=== PATIENT | male | born 1980 | race Caucasian/White ===

== ENCOUNTER → 2021-12-30 | Outpatient (CLI) | payer BC ==
--- NOTE | 2021-12-30 11:22 | US ---
EXAMINATION TYPE: US groin RT DATE OF EXAM: 12/30/2021 COMPARISON: NONE CLINICAL HISTORY: K40.90 UNI LATERAL INGUINAL HERNIA. Rule out hernia. Inguinal hernia. Scanned patient's right groin, at area of concern. Hypoechoic area with hyperechoic center seen within the right groin: 2.4 x 1.8 x 1.4 cm. Abnormal right groin lymph node suspected on images saved increased in size with cortical thickening. No suspicious hernia seen on images saved including with Valsalva maneuver. No solid or cystic mas s or focal fluid collection on images saved. IMPRESSION: As above. Abnormal lymph node could reflect infectious or inflammatory etiology but kimberly plasm such as lymphoma cannot be excluded. Consider further workup with CT and/or PET/CT based on cli nical correlation.
--- NOTE | 2021-12-30 11:36 | US ---
EXAMINATION TYPE: US scrotum with doppler. Grayscale and color Doppler Duplex imaging performed of thomas bean scrotum. DATE OF EXAM: 12/30/2021 COMPARISON: NONE CLINICAL HISTORY: N50.819 TESTICULAR PAIN. Pain EXAM MEASUREMENTS: TESTICLES: Right Testicle: 4.7 x 3.3 x 2.9 cm Left Testicle: 4.4 x 2.9 x 3.4 cm EPIDIDYMIS HEAD: Right Epididymis: 0.6 x 0.9 x 1.4 cm Left Epididymis: 0.7 x 1.3 x 1.0 cm Doppler performed to assess for testicular vascularity; bilateral color flow and waveforms are seen. Presence of hydroceles: Yes, on right: 2.2 x 2.0 x 1.0 on left: 2.5 x 2.2 x 0.6 cm. Presence of varicoceles: Vessels seen lateral to right testicle measure up to 2.4 mm. Vessels appear prominent lateral to the left testicle and measure up to 2.9 mm. Multiple tiny bilateral scrotal fluid collection or hydroceles. Testicles symmetric and normal in siz e without intratesticular mass identified bilaterally. Epididymis within normal limits. Comparison vi ew show symmetric blood flow to both testicles. Possible left greater than right prominent vessels or varicoceles incidentally noted. IMPRESSION: Symmetric blood flow to both testicles noted.
== END | disposition home or self-care (01) ==
LOC: RADUSWWP 10:17
PROVIDERS: ATTEND Family Medicine
DX: K40.90 Unilateral inguinal hernia, without obstruction or gangrene, not specified as recurrent (principal); N50.819 Testicular pain, unspecified
CPT/HCPCS: 76870; 93975

== ENCOUNTER → 2022-01-18 | Outpatient (CLI) | payer BC ==
--- NOTE | 2022-01-18 14:03 | CT ---
EXAMINATION TYPE: CT pelvis wo/w con DATE OF EXAM: 01/18/2022 INDICATION: Right lower groin pain, localized enlarged lymph node CT DLP: 4285.4 mGy.cm Automated Exposure Control for Dose Reduction was Utilized. TECHNIQUE AND CONTRAST: CT scan of the pelvis is performed without and with IV Contrast, patient injected with 100 mL of Isov ue 300. COMPARISON: Ultrasound dated 12/30/2021 FINDINGS: Large right and smaller left bilateral fat-containing inguinal hernias extending to the scrotum. Enla rged bilateral inguinal lymph nodes measuring up to 14 mm on the right side and 13 mm on the left sarahi e, associated with scattered subcentimeter bilateral external iliac, retroperitoneal, mesenteric and ileocolic lymph nodes, nonspecific. Lymphoma or lymphoproliferative disease cannot be excluded, for c linical correlation and further workup. Thickened with irregular outline of the right lateral aspect of the urinary bladder wall, being tethe red towards the large right inguinal hernia. Recommend correlation with urinalysis results. Unremarka ble prostate and seminal vesicles. Fecal loading of the rectum and sigmoid colon. Scattered uncomplicated colonic diverticulosis. Unremarkable visualized small bowel. Unremarkable vis ualized portion of the kidneys. No hydroureter or hydronephrosis. Small fat-containing umbilical erna ia. Degenerative changes at L5-S1 level with retrolisthesis of L3 over L4 and L4 over L5. IMPRESSION: Enlarged bilateral inguinal lymph nodes with prominent bilateral external iliac, mesenteric, ileocoli c and retroperitoneal lymph nodes as described above, nonspecific. Lymphoma or lymphoproliferative di sease cannot be excluded, for clinical correlation and further workup. Other findings as described above.
== END | disposition home or self-care (01) ==
LOC: RADCTMAIN 10:37
PROVIDERS: ATTEND Family Medicine
DX: R59.0 Localized enlarged lymph nodes (principal)
CPT/HCPCS: 72194; Q9967

== ENCOUNTER → 2022-03-16 | Outpatient (CLI) | payer BC | END | disposition home or self-care (01) | LOC: LABWHC1 08:31 | PROVIDERS: ATTEND Surgery | DX: Z53.9 Procedure and treatment not carried out, unspecified reason (principal) ==

== ENCOUNTER → 2022-03-16 | Outpatient (CLI) | payer BC ==
--- NOTE | 2022-03-16 10:53 | CT ---
EXAMINATION TYPE: CT abdomen pelvis w con DATE OF EXAM: 03/16/2022 COMPARISON: CT dated 01/18/2022 HISTORY: Localized enlarged lymph nodes. CT DLP: 1944 mGycm Automated exposure control for dose reduction was used. TECHNIQUE: Helical acquisition of images was performed from the lung bases through the pelvis. CONTRAST: Performed with Oral Contrast and with IV Contrast, patient injected with 100ml mL of Isovue 300. FINDINGS: LUNG BASES: No significant abnormality is appreciated. LIVER/GB: No significant abnormality is appreciated. PANCREAS: No significant abnormality is seen. SPLEEN: No significant abnormality is seen. ADRENALS: No significant abnormality is seen. KIDNEYS: No significant abnormality is seen. FREE AIR: No free air is visualized. RETROPERITONEAL ADENOPATHY: Millimetric retroperitoneal lymph nodes, stable. REPRODUCTIVE ORGANS: No significant abnormality is seen URINARY BLADDER: Focal thickening of the right lateral aspect of the urinary bladder wall, being tet hered towards the right inguinal hernia however underlying urothelial lesion cannot be excluded. Joao mmend correlation with urinalysis results including cytology. Cystoscopy can be considered. PELVIC ADENOPATHY: Stable prominent bilateral inguinal lymph nodes measuring up to 12 mm on the righ t side and 14 mm on the left side. No progressive pelvic lymphadenopathy. OSSEOUS STRUCTURES: Mild retrolisthesis of L4 over L5 and anterolisthesis of L5 over S1. No aggressi ve bone lesion. BOWEL: No significant abnormality is seen. OTHER: Unremarkable abdominal aorta. Scattered millimetric mesenteric and ileocolic lymph nodes, nons pecific and stable. No sizable ascites. Sizable bilateral fat-containing inguinoscrotal hernias large r on the right side. Small fat-containing umbilical hernia. IMPRESSION: No appreciable interval changes regarding the previously seen prominent bilateral inguinal lymph node s and other scattered smaller abdominal and retroperitoneal lymph nodes without interval progression, nonspecific. No hepatomegaly or splenomegaly. Focal thickening of the right lateral wall of the urinary bladder, being tethered towards the right i nguinal hernia however underlying urothelial lesion can't be excluded. Recommend correlation with uri nalysis results including cytology. Further cystoscopy can be considered. Other incidental findings a s described above.
== END | disposition home or self-care (01) ==
LOC: RADCTMAIN 07:54
PROVIDERS: ATTEND Internal Medicine Hematology & Oncology
DX: R59.0 Localized enlarged lymph nodes (principal)
CPT/HCPCS: 74177; Q9967 ×2

== ENCOUNTER 2022-03-23 05:48 | Day surgery (SDC) | payer BC ==
[2022-03-17 07:49] LABS: Basophils # (A) 0.04 X 10*3/uL (0.00-0.10); Basophils % (A) 0.8 %; Eosinophils # (A) 0.27 X 10*3/uL (0.04-0.35); Eosinophils % (A) 5.7 %; HCT 43.5 % (39.6-50.0); HGB 14.2 g/dL (13.0-17.0); Immature Grans, Automated 0.6 %; Lymphocytes % (A) 23.1 %; MCH 29.3 pg (27.0-32.0); MCHC 32.6 g/dL (32.0-37.0); MCV 89.9 fL (80.0-97.0); Mean Platelet Volume 11.6 fL (9.5-12.2); Monocytes # (A) 0.36 X 10*3/uL (0.20-1.00); Monocytes % (A) 7.5 %; NRBC Per 100 WBC 0 /100 WBCS (0.0-0.0); Neutrophils # (A) 2.97 X 10*3/uL (1.80-7.70); Neutrophils % (A) 62.3 %; Platelet Count 192 X 10*3/uL (140-440); RBC 4.84 X 10*6/uL (4.40-5.60); WBC 4.77 X 10*3/uL (4.50-10.00)
[2022-03-19 13:05] VITALS: BMI 34.7
[~2022-03-23 05:48] MED LIST: ACETAMINOPHEN TAB 500 MG TAB PO PRN; HEPARIN SODIUM,PORCINE/PF 5,000 UNIT/0.5 ML SYRINGE SQ PRN; ceFAZolin 3 GM in SODIUM CHLORIDE 0.9% 100 ML IVPB PRN
[2022-03-23] MEDS ORDERED: LIDOCAINE 1% (10MG/ML) FOR IV START INTRADERMA PRN (05:50)
[2022-03-23] MEDS ORDERED: ONDANSETRON 4 MG/2 ML VIAL IVP ONE (05:50)
[2022-03-23] MEDS ORDERED: LACTATED RINGERS 1,000 ML IV SCH (05:50)
[2022-03-23] MEDS ORDERED: DEXAMETHASONE SOD PHOSPHATE 4 MG/ML 1 ML VIAL IV ONE (05:50)
[2022-03-23] MEDS ORDERED: METOCLOPRAMIDE 5 MG/ML 2 ML VIAL IVP PRN (07:00)
[2022-03-23] MEDS ORDERED: HYDROmorphone 0.5 MG/0.5 ML SYRINGE IVP PRN (07:00)
[2022-03-23] MEDS ORDERED: BUPIVACAIN-EPI 0.25%-1:200,000 30 ML VIAL SQ ONE ×2 (07:21→08:24)
[2022-03-23] MEDS ORDERED: LIDOCAINE 2% INJ 20 MG/ML (2 ML VIAL) ONE (07:59)
[2022-03-23] MEDS ORDERED: fentaNYL (PF) 50 MCG/ML 2 ML AMP ONE (07:59)
[2022-03-23] MEDS ORDERED: SUCCINYLCHOLINE CHLORIDE 100 MG/5 ML SYR IV ONE (07:59)
[2022-03-23] MEDS ORDERED: GLYCOPYRROLATE 0.2 MG/ML 2 ML VIAL ONE (07:59)
[2022-03-23] MEDS ORDERED: KETOROLAC 15 MG/ML 1 ML VIAL ONE (07:59)
[2022-03-23] MEDS ORDERED: ROCURONIUM 10 MG/ML (5 ML VIAL) IV ONE (07:59)
[2022-03-23] MEDS ORDERED: PHENYLEPHRINE-0.9% NACL SYG 1,000 MCG/10 ML SYRINGE ONE (07:59)
[2022-03-23] MEDS ORDERED: NEOSTIGMINE 1 MG/ML 10 ML VIAL ONE (07:59)
[2022-03-23] MEDS ORDERED: MIDAZOLAM 2 MG/2 ML VIAL ONE (07:59)
[2022-03-23] MEDS ORDERED: PROPOFOL 10 MG/ML 20 ML VIAL IV ONE (07:59)
[2022-03-23] MEDS ORDERED: KETAMINE 10 MG/ML 20 ML VIAL ONE (07:59)
[2022-03-23 09:29] VITALS: TEMP 97
--- NOTE | 2022-03-23 09:34 | P.GSHP ---
History of Present Illness H&P Date: 03/23/22 Chief Complaint: Bilateral inguinal hernia This a 42-year-old male who complaints of pain in bilateral groins. Patient's workup found have evidence of bilateral inguinal hernias. He presents today for laparoscopic robotic-assisted repair. Past Medical History Additional Past Medical History / Comment(s): INGUINAL HERNIA History of Any Multi-Drug Resistant Organisms: None Reported Past Surgical History: Adenoidectomy, Tonsillectomy Past Anesthesia/Blood Transfusion Reactions: No Reported Reaction Smoking Status: Former smoker - Past Family History Mother Family Medical History: No Reported History Medications and Allergies Home Medications Medication Instructions Recorded Confirmed Type Cetirizine HCl [Zyrtec] 10 mg PO DAILY 03/19/22 03/19/22 History Fluticasone Nasal [place] [Flonase 1 spray NASAL DAILY 03/23/22 03/23/22 History Nasal [place]] Allergies Allergy/AdvReac Type Severity Reaction Status Date / Time cephalexin [From Keflex] Allergy Rash/Hives Verified 03/19/22 12:59 Surgical - Exam Vital Signs Temp Pulse Resp BP Pulse Ox 97.3 F L 71 20 136/91 94 L 03/23/22 06:18 03/23/22 06:18 03/23/22 06:18 03/23/22 06:18 03/23/22 06:18 - General well developed, well nourished, no distress - Eyes PERRL - ENT normal pinna - Neck no masses - Respiratory normal expansion - Cardiovascular Rhythm: regular - Abdomen Abdomen: soft, non tender Hernia: inguinal (Bilateral inguinal is. Right greater than left) Results - Labs 03/16/22 10:12 Assessment and Plan Assessment: Bilateral inguinal hernias. We'll perform laparoscopic robotic system repair.
[2022-03-23] MEDS ORDERED: LACTATED RINGERS 1,000 ML IV ONE (09:35)
--- NOTE | 2022-03-23 09:38 | P.OP ---
Date of Procedure: 03/23/22 Preoperative Diagnosis: Bilateral inguinal hernia Postoperative Diagnosis: Bilateral hernia Procedure(s) Performed: Transversus abdominis plane block Repair of bilateral internal hernia Excision of bilateral cord lipoma Anesthesia: PAULO Surgeon: Rock Crane Estimated Blood Loss (ml): 5 Pathology: other (Cord lipoma) Condition: stable Disposition: PACU Description of Procedure: The patient's placed on the operating table in the supine position. The patient received general anesthesia. The patient's abdomen was prepped and draped in usual sterile fashion. The skin was anesthetized 1% local Xylocaine at the incision sites. Using an 11 blade a skin incision was made at the umbilicus. The fascia was grasped with a Tawnya and then the peritoneal cavity was entered with the Veress needle. Position of the Veress needle was confirmed with a positive drop test. After adequate insufflation a 5 mm trocar was placed into the peritoneal cavity. The Laparoscope was placed the peritoneal cavity. And a robotic 8 mm trocar was placed in the right lateral position and then another 8 mm robotic trochars placed in the left lateral position. The original 5 mm trocar was exchanged for a 12 mm trocar. The patient was placed in reverse Trendelenburg and then the pa tient was docked to the robot. Next the peritoneum over top of the right inguinal hernia was incised and then using blunt and sharp dissection and electrocautery the hernia sac was dissected free from the floor of the inguinal canal. The cord lipoma was dissected free to pathology. The hernia sac was completely reduced into the peritoneal cavity. And then using the Pro glass bead maker mesh the hernia was repaired. The peritoneum was then sutured with 20V lock suture. Next the peritoneum over top of the left inguinal hernia was incised and then using blunt and sharp dissection and electrocautery the hernia sac was dissected free from the floor of the inguinal canal. The cord lipoma was dissected free to pathology. The hernia sac was completely reduced into the peritoneal cavity. And then using the Pro glass bead maker mesh the hernia was repaired. The peritoneum was then sutured with 20V lock suture. The patient was then undocked the robot. A four-quadrant tap block was performed using 1% local Xylocaine. The needle was withdrawn from the peritoneal cavity. The umbilical trocar site was closed with 0 Ethibond suture. The skin was closed interrupted 3-0 Monocryl suture. Dermabond dressing was applied. Patient was sent to recovery in stable condition.
[2022-03-23 10:30] VITALS: BP 139/91
[2022-03-23 10:53] VITALS: PULSE 61; RESP 18
== END 2022-03-23 11:15 | disposition home or self-care (01) ==
LOC: OR 05:48
PROVIDERS: ATTEND Surgery
DX: K40.20 Bilateral inguinal hernia, without obstruction or gangrene, not specified as recurrent (principal); D17.6 Benign lipomatous neoplasm of spermatic cord; Z90.89 Acquired absence of other organs; Z87.891 Personal history of nicotine dependence; Z79.899 Other long term (current) drug therapy; Z88.1 Allergy status to other antibiotic agents
CPT/HCPCS: 49650; S2900; 36415; 85025; 86850; 86900; 86901; 88304

== ENCOUNTER 2022-03-28 18:03 | Emergency (ER) | payer BC ==
[2022-03-28 18:39] VITALS: TEMP 98.4
[2022-03-28] MEDS ORDERED: SODIUM CHLORIDE 0.9% 1,000 ML IV STA (18:43)
[2022-03-28] MEDS ORDERED: HYDROmorphone 1 MG/ML 1 ML SYRINGE IVP STA (18:43)
--- NOTE | 2022-03-28 18:45 | ED ---
General Adult HPI - General Chief complaint: Recheck/Abnormal Lab/Rx Stated complaint: Fever/groin pain/post op Time Seen by Provider: 03/28/22 18:42 Source: patient Mode of arrival: ambulatory Limitations: no limitations - History of Present Illness Initial comments: Patient presents to the ED with his for postoperative evaluation. Patient is 5 days status post bilateral inguinal hernia repair performed by Dr. Crane (general surgery). Patient states that he developed scrotal ecchymosis and swelling about 2 days after his surgery, and he states that he's had severe left-sided scrotal and inguinal pain since yesterday. Patient states that he has not reached out to his surgeon about these symptoms. Patient denies trauma or injury, fever or chills, headache, focal neuro deficit, chest pain or pressure, dyspnea, dizziness, abdominal pain, back or flank pain, nausea or vomiting, diarrhea or constipation, bloody or melanotic stool, dysu donnie/hematuria/urinary frequency/urinary symptoms, penile discharge, or any other symptoms or complaints. - Related Data Home Medications Medication Instructions Recorded Confirmed Cetirizine HCl [Zyrtec] 10 mg PO DAILY 03/19/22 03/19/22 Fluticasone Nasal [place] [Flonase 1 spray NASAL DAILY 03/23/22 03/23/22 Nasal [place]] Previous Rx's Medication Instructions Recorded Acetaminophen Tab [Tylenol] 650 mg PO Q6H #30 tab 03/23/22 Docusate [Colace] 100 mg PO BID #20 capsule 03/23/22 Ibuprofen [Motrin] 600 mg PO Q6HR PRN #40 tab 03/23/22 oxyCODONE HCL [OxyIR] 5 mg PO Q6H PRN 3 Days #10 tab 03/23/22 Allergies Allergy/AdvReac Type Severity Reaction Status Date / Time cephalexin [From Keflex] Allergy Rash/Hives Verified 03/19/22 12:59 Review of Systems ROS Statement: Those systems with pertinent positive or pertinent negative responses have been documented in the HPI. ROS Other: All systems not noted in ROS Statement are negative. Past Medical History Past Medical History: No Reported History History of Any Multi-Drug Resistant Organisms: None Reported Additional Past Surgical History / Comment(s): bilateral inguinal hernias done on 03-23-[address] Valdovinos. Past Psychological History: No Psychological Hx Reported Smoking Status: Former smoker, Never smoker Past Alcohol Use History: None Reported, Occasional Past Drug Use History: None Reported General Exam Limitations: no limitations General appearance: alert, in no apparent distress Head exam: Present: atraumatic, normocephalic Eye exam: Present: normal appearance, EOMI ENT exam: Present: mucous membranes moist Neck exam: Present: other (Trachea is in midline) Respiratory exam: Present: normal lung sounds bilaterally. Absent: respiratory distress, wheezes, rales, rhonchi, stridor Cardiovascular Exam: Present: regular rate, normal rhythm, normal heart sounds, other (Normal radial pulses bilaterally) GI/Abdominal exam: Present: soft, hypoactive bowel sounds, other (Patient has no abdominal tenderness on examination). Absent: distended, tenderness, guarding exam: Present: other (Mild left inguinal tenderness; diffuse scrotal swelling and ecchymosis; left-sided scrotal tenderness) Extremities exam: Absent: tenderness, pedal edema, calf tenderness Back exam: Absent: CVA tenderness (R), CVA tenderness (L) Neurological exam: Present: alert, oriented X3. Absent: motor sensory deficit Psychiatric exam: Present: normal affect, normal mood Skin exam: Present: warm, dry, intact Course Vital Signs 03/28/22 03/28/22 18:35 19:20 Temperature 98.4 F Pulse Rate 105 H 80 Respiratory 20 16 Rate Blood Pressure 138/95 139/82 O2 Sat by Pulse 95 97 Oximetry - Reevaluation(s) Reevaluation #1: 03/28/22 20:21 Case, H&P and test results were discussed with Dr. Crane (general surgery). He states the patient's exam/CT findings are normal postoperative findings. He recommends discharge patient home with pain management, and he states that he will see the patient in his clinic on Tuesday. He has no further recommendations at this time. 03/28/22 21:10 Patient states that his pain has improved with ED treatment, and he denies development of any new symptoms while in the ED. Patient's abdomen remains soft and nontender on examination. Patient and are aware the patient's test results and my discussion with Dr. Crane as above. Patient feels comfortable going home at this time. Patient was counseled about postoperative pain, and he was clearly explained return and follow-up instructions. Patient was instructed to follow up with Dr. Crane in his clinic on Tuesday as recommended by Dr. Crane and he agrees to do so. Medical Decision Making - Medical Decision Making Patient reports that his pain has improved with ED treatment. Patient's abdomen is soft and nontender on examination. Patient is afebrile and without leukocytosis. Patient's labs are fairly unremarkable. Case was discussed with the patient's general surgeon (Dr. Crane), and he states that the patient's CT and exam findings are normal postoperative findings given the patient's surgeries. He recommends having the patient follow-up with him in his clinic on Tuesday. He had no further recommendations. Patient and are aware the patient's test results and my discussion with Dr. Crane. Patient feels comfortable going home with his at this time. Patient was counseled about postoperative pain, and he was clearly explained return and follow-up instructions. Patient was instructed to call Dr. Crane's office tomorrow morning to schedule an appointment. Patient was also provided with a Tylenol #3 starter pack. - Lab Data Result diagrams: 03/28/22 19:20 03/28/22 19:20 Lab Results 03/28/22 03/28/22 03/28/22 Range/Units 19:20 19:20 19:20 WBC 9.4 (3.8-10.6) k/uL RBC 4.56 (4.30-5.90) m/uL Hgb 14.2 (13.0-17.5) gm/dL Hct 41.8 (39.0-53.0) % MCV 91.7 (80.0-100.0) fL MCH 31.2 (25.0-35.0) pg MCHC 34.0 (31.0-37.0) g/dL RDW 12.9 (11.5-15.5) % Plt Count 180 (150-450) k/uL MPV 8.0 Neutrophils % 78 % Lymphocytes % 9 % Monocytes % 6 % Eosinophils % 5 % Basophils % 1 % Neutrophils # 7.4 (1.3-7.7) k/uL Lymphocytes # 0.9 L (1.0-4.8) k/uL Monocytes # 0.6 (0-1.0) k/uL Eosinophils # 0.5 (0-0.7) k/uL Basophils # 0.1 (0-0.2) k/uL Sodium 139 (137-145) mmol/L Potassium 4.5 (3.5-5.1) mmol/L Chloride 107 (98-107) mmol/L Carbon Dioxide 24 (22-30) mmol/L Anion Gap 8 mmol/L BUN 18 (9-20) mg/dL Creatinine 0.99 (0.66-1.25) mg/dL Est GFR (CKD-EPI)AfAm >90 (>60 ml/min/1.73 sqM) Est GFR (CKD-EPI)NonAf >90 (>60 ml/min/1.73 sqM) Glucose 97 (74-99) mg/dL Plasma Lactic Acid Jamarcus 1.1 (0.7-2.0) mmol/L Calcium 8.8 (8.4-10.2) mg/dL Total Bilirubin 0.7 (0.2-1.3) mg/dL AST 29 (17-59) U/L ALT 27 (4-49) U/L Alkaline Phosphatase 90 (38-126) U/L Total Protein 7.4 (6.3-8.2) g/dL Albumin 4.1 (3.5-5.0) g/dL Lipase 180 (23-300) U/L - Radiology Data CT abdomen/pelvis with IV contrast: There is right inguinal hernia containing wall of the urinary bladder that is increased compared to last exam. There is apparent surgery on the left inguinal hernia compared to last exam. There is scrotal edema and hydroceles which are increased compared to old exam. Disposition Clinical Impression: Postoperative pain Disposition: HOME SELF-CARE Condition: Stable Instructions (If sedation given, give patient instructions): Pain Management (ED) Additional Instructions: Return to the ER immediately should you develop new or worsening pain, increased swelling, inability to urinate, a fever, vomiting, shortness of breath, feeling dizzy or faint, or new or worsening symptoms. Follow up with Dr. Crane (your general surgeon) in his clinic on Tuesday as discussed (call tomorrow morning for an appointment). Is patient prescribed a controlled substance at d/c from ED?: No Referrals: Eliceo Miles MD [Primary Care Provider] - 1-2 days Rock Crane MD [STAFF PHYSICIAN] - 1-2 days Time of Disposition: 21:14
[2022-03-28 19:21] VITALS: RESP 16
[2022-03-28 19:26] LABS: Basophils # (A) 0.1 k/uL (0-0.2); Basophils % (A) 1 %; Eosinophils # (A) 0.5 k/uL (0-0.7); Eosinophils % (A) 5 %; HCT 41.8 % (39.0-53.0); HGB 14.2 gm/dL (13.0-17.5); Lymphocytes # (A) 0.9 k/uL (1.0-4.8); Lymphocytes % (A) 9 %; MCH 31.2 pg (25.0-35.0); MCV 91.7 fL (80.0-100.0); Monocytes # (A) 0.6 k/uL (0-1.0); Monocytes % (A) 6 %; Neutrophils # (A) 7.4 k/uL (1.3-7.7); Neutrophils % (A) 78 %; Platelet Count 180 k/uL (150-450); RBC 4.56 m/uL (4.30-5.90); RDW 12.9 % (11.5-15.5); WBC 9.4 k/uL (3.8-10.6)
[2022-03-28 19:35] LABS: ALT 27 U/L (4-49); African American GFR (CKD) >90 (>60 ml/min/1.73 sqM); Albumin 4.1 g/dL (3.5-5.0); Anion Gap 8 mmol/L; Blood Urea Nitrogen 18 mg/dL (9-20); Calcium 8.8 mg/dL (8.4-10.2); Carbon Dioxide 24 mmol/L (22-30); Chloride 107 mmol/L (98-107); Glucose 97 mg/dL (74-99); Lipase 180 U/L (23-300); Non-African American GFR(CKD) >90 (>60 ml/min/1.73 sqM); Sodium 139 mmol/L (137-145); Total Bilirubin 0.7 mg/dL (0.2-1.3); Total Protein 7.4 g/dL (6.3-8.2)
[2022-03-28 19:37] LABS: AST 29 U/L (17-59); Potassium 4.5 mmol/L (3.5-5.1)
[2022-03-28 19:38] LABS: Alkaline Phosphatase 90 U/L (38-126)
--- NOTE | 2022-03-28 20:07 | CT ---
EXAMINATION TYPE: CT abdomen pelvis w con DATE OF EXAM: 03/28/2022 COMPARISON: 03/16/2022 HISTORY: recent inguinal hernia sx, pain and sweliing CT DLP: 2529.9 mGycm Automated exposure control for dose reduction was used. CONTRAST: Performed with IV Contrast, patient injected with 100 mL of Isovue 300. Images obtained from the diaphragm to the floor the pelvis with IV contrast. The lung bases show minimal subsegmental atelectasis. No pleural effusion. Heart size is normal. No p ericardial effusion. Liver spleen and stomach pancreas and gallbladder appear intact. The bile ducts are not dilated. Ther e is no adrenal mass. Kidneys show satisfactory contrast opacification. There is no hydronephrosis. D elayed images show normal renal excretion. There is no retroperitoneal adenopathy. There is calcifica tion in the appendix. Appendix has normal size. No retroperitoneal mass. No bladder mass. There is fa t-containing large right inguinal hernia. There is apparent bilateral hydroceles. There is some bladd er herniation into the right inguinal hernia. There is no mesenteric edema. No ascites or free air. No sign of a bowel obstruction. The lumbar vertebrae have normal alignment. No compression fracture. The bony pelvis is intact. No pe lvic mass. The hip joints appear intact. IMPRESSION: There is right inguinal hernia containing wall of the urinary bladder that is increased compared to l ast exam. There is apparent surgery on the left inguinal hernia compared to last exam. There is scrot al edema and hydroceles which are increased compared to old exam.
[2022-03-28] MEDS ORDERED: ACET/COD 300 MG/30 MG STARTER PACK 6 TAB BTL PO STA (20:52)
[2022-03-28 22:03] VITALS: BP 137/83; PULSE 93
== END 2022-03-28 22:02 | disposition home or self-care (01) ==
LOC: EC 18:03
DX: G89.29 Other chronic pain (principal); R10.2 Pelvic and perineal pain; R50.9 Fever, unspecified; Z88.1 Allergy status to other antibiotic agents; Z88.8 Allergy status to other drugs, medicaments and biological substances; Z87.891 Personal history of nicotine dependence
CPT/HCPCS: 36415; 80053; 83605; 83690; 85025; 87040; 74177; 99284; 96374; 96361; J1170; Q9967